=== PATIENT | male | born 1970 | race Two or more races ===

== ENCOUNTER 2020-01-03 11:00 | Outpatient (CLI) | payer OTHER | END 2020-01-03 12:41 | disposition home or self-care (01) | LOC: SONOGRAMA 11:00 → MRI 11:00 → SONOGRAMA 12:41 | PROVIDERS: ATTEND Physical Medicine & Rehabilitation | DX: M25.511 Pain in right shoulder (principal) ==

== ENCOUNTER → 2020-08-01 | Outpatient (CLI) | payer OTHER | END | disposition home or self-care (01) | LOC: RAD 09:42 | PROVIDERS: ATTEND Orthopaedic Surgery Sports Medicine | DX: M25.511 Pain in right shoulder (principal) ==